=== PATIENT | female | born 1995 | race Caucasian/White ===

== ENCOUNTER 2017-04-04 19:50 | Emergency (ER) | payer SELFPAY ==
--- NOTE | 2017-04-04 21:38 | Cat Scan Report ---
FINAL REPORT PROCEDURE: CT head without contrast. TECHNIQUE: Computerized tomography of the head was performed without contrast material. HISTORY: Head trauma. COMPARISON: No prior studies are available for comparison. FINDINGS: The ventricles are normal in size. The seasl matter and white matter appear normal. There are no mass lesions. There is no intracranial hemorrhage. The calvarium appears intact. The mastoid air cells and paranasal sinuses are clear as far as visualized. IMPRESSION: Normal study.
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
[2017-04-04] MEDS ORDERED: ZOFRAN ODT PO ONE (22:28)
[2017-04-04] MEDS ORDERED: TYLENOL PO ONE (22:28)
[2017-04-04] MEDS ORDERED: TRIPLE ANTIBIOTIC TP ONE (23:10)
[2017-04-05 01:47] VITALS: BP 118/79
== END 2017-04-04 23:41 | disposition home or self-care (01) ==
LOC: ED 19:50
DX: S01.01XA Laceration without foreign body of scalp, initial encounter (principal); M25.561 Pain in right knee; Y08.89XA Assault by other specified means, initial encounter; Y93.89 Activity, other specified; Y92.89 Other specified places as the place of occurrence of the external cause; Y99.8 Other external cause status
CPT/HCPCS: 70450; 81025; 99284; A6250; Q0162